=== PATIENT | male | born 2000 | race Caucasian/White ===

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

== ENCOUNTER 2019-05-24 19:07 | Emergency (ER) | payer OTHER ==
[~2019-05-24] VITALS: Ht 175.3 cm; Wt 92.7 kg
[2019-05-24] MEDS ORDERED: ALBUTEROL SULFATE 2.5 MG/0.5 ML NEB SOLUTION NEB ONE (21:00)
[2019-05-24] MEDS ORDERED: KETOROLAC TROMETHAMINE 10 MG TABLET PO ONE (21:00)
[2019-05-24] MEDS ORDERED: IPRATROPIUM BROMIDE 0.5 MG/2.5 ML NEB SOLUTION NEB ONE (21:00)
[2019-05-24] MEDS ORDERED: ONDANSETRON HCL 4 MG TABLET PO ONE (21:00)
[2019-05-24] MEDS ORDERED: 0.9% SODIUM CHLORIDE 5 ML NEB SOLUTION NEB ONE (21:01)
[2019-05-24 23:30] VITALS: BP 133/72
== END 2019-05-25 00:50 | disposition home or self-care (01) ==
LOC: EMS 19:08
DX: J11.1 Influenza due to unidentified influenza virus with other respiratory manifestations (principal)
CPT/HCPCS: 94640; 99283; Q0162

== ENCOUNTER 2023-02-23 14:20 | Emergency (ER) | payer OTHER ==
[~2023-02-23] VITALS: Ht 180.3 cm; Wt 100.0 kg
[2023-02-23 14:21] VITALS: TEMP 98.6
[2023-02-23] MEDS ORDERED: LIDOCAINE 1%/EPI 1:200,000/PF 30 ML VIAL PERC ONE (15:15)
[2023-02-23] MEDS ORDERED: POVIDONE-IODINE 10% 15 ML SOLUTION UD TP ONE (15:15)
[2023-02-23] MEDS ORDERED: DOXY-354 PO (16:06)
[2023-02-23 16:15] VITALS: BP 146/71; PULSE 69; RESP 18
== END 2023-02-23 16:35 | disposition home or self-care (01) ==
LOC: EMS 14:26
DX: L05.01 Pilonidal cyst with abscess (principal)
CPT/HCPCS: 10080; 99283; J3490

== ENCOUNTER 2023-02-25 11:30 | Emergency (ER) | payer OTHER ==
[~2023-02-25] VITALS: Ht 177.8 cm; Wt 84.1 kg
[~2023-02-25 11:30] MED LIST: DOXY-354 PO
[2023-02-25 11:35] VITALS: TEMP 98.3
[2023-02-25 12:18] VITALS: BP 112/66; PULSE 69; RESP 18
== END 2023-02-25 12:43 | disposition home or self-care (01) ==
LOC: EMS 11:30
DX: L05.01 Pilonidal cyst with abscess (principal)
CPT/HCPCS: 99281; Z7502

== ENCOUNTER 2023-08-10 17:41 | Emergency (ER) | payer OTHER ==
[~2023-08-10] VITALS: Ht 180.3 cm; Wt 91.0 kg
[2023-08-10 18:12] VITALS: BP 119/72; PULSE 80; RESP 16; TEMP 98.6
== END 2023-08-10 21:45 | disposition left against medical advice (07) ==
LOC: EMS 17:46
DX: R50.9 Fever, unspecified (principal); Z53.21 Procedure and treatment not carried out due to patient leaving prior to being seen by health care provider
CPT/HCPCS: 99281; Z7502